=== PATIENT | female | born 1980 | race Caucasian/White ===

== ENCOUNTER 2016-03-17 22:31 | Emergency (ER) | payer MEDICAID | END 2016-03-18 01:32 | disposition home or self-care (01) | LOC: ER 22:31 | DX: R55 Syncope and collapse (principal); J01.00 Acute maxillary sinusitis, unspecified; J01.10 Acute frontal sinusitis, unspecified; I10 Essential (primary) hypertension; K21.9 Gastro-esophageal reflux disease without esophagitis; J45.909 Unspecified asthma, uncomplicated; F17.210 Nicotine dependence, cigarettes, uncomplicated | CPT/HCPCS: 36415; 80053; 82947; 85025; 93005 ==

== ENCOUNTER 2016-03-28 08:02 | Emergency (ER) | payer MEDICAID ==
[2016-03-28] MEDS ORDERED: SODIUM CHLORIDE 0.9% 1,000 ML ONE (08:49)
== END 2016-03-28 10:21 | disposition home or self-care (01) ==
LOC: ER 08:02
DX: R55 Syncope and collapse (principal); F12.180 Cannabis abuse with cannabis-induced anxiety disorder; F17.210 Nicotine dependence, cigarettes, uncomplicated; I10 Essential (primary) hypertension; J45.909 Unspecified asthma, uncomplicated
CPT/HCPCS: 36415; 70450; 80053; 80307; 80320; 80329; 81003; 82553; 82947; 84439; 84443; 84484; 85025; 96360